=== PATIENT | male | born 1975 | race Caucasian/White ===

== ENCOUNTER 2017-02-13 13:09 | Emergency (ER) | payer BC, OTHER ==
[~2017-02-13] VITALS: Ht 172.7 cm; Wt 101.3 kg
[2017-02-13 13:16] VITALS: BP 131/66
--- NOTE | 2017-02-13 13:27 | NUR ---
continues to wait for available room for MD davis. no emesis states abdominal pain continues, more so with certain movements.
--- NOTE | 2017-02-13 14:32 | NUR ---
PATIENT PRESENTS TO ED WITH SINUS PAIN EAR PAIN THROAT PAIN . PT STATES FEELS SICK] . DENIES N/V/D; SKIN IS PINK/WARM/DRY; AAOX4 WITH EVEN AND STEADY GAIT; LUNGS CLEAR BL; HR EVEN AND REGULAR; ; PATIENT STATES PAIN OF 5/10 AT THIS TIME; VSS; PATIENT POSITIONED FOR COMFORT; HOB ELEVATED; BEDRAILS UP X2; BED DOWN. ER MD MADE AWARE OF PT STATUS.
--- NOTE | 2017-02-13 16:04 | NUR ---
PT IS A NO ANSWER OUT IN THE ER LOBBY FOR DC PAPERS----
--- NOTE | 2017-02-13 16:17 | NUR ---
I CALLED PT'S HOME, HIS MOTHER ANSWERED---INFORMED WE HAVE PT'S DISCHARGE PAPERS AND RX---TO PLEASE RETURN FOR RX
--- NOTE | 2017-02-13 17:35 | NUR ---
PT RETURNED FROM HOME---PICKED UP RX
--- NOTE | 2017-02-13 17:35 | NUR ---
Patient discharged with v/s stable. Written and verbal after care instructions given and explained. Patient alert, oriented and verbalized understanding of instructions. Ambulatory with steady gait. All questions addressed prior to discharge. ID band removed. Patient advised to follow up with PMD. Rx of AMOXICILLIN/MOTRIN/SUDAFED/PREDNISONE given. Patient educated on indication of medication including possible reaction and side effects. Opportunity to ask questions provided and answered.
[2017-02-13 17:37] VITALS: BP 131/79
== END 2017-02-13 17:35 | disposition home or self-care (01) ==
LOC: MED 13:09
DX: H66.90 Otitis media, unspecified, unspecified ear (principal); J03.90 Acute tonsillitis, unspecified; Z90.89 Acquired absence of other organs
CPT/HCPCS: 99283

== ENCOUNTER 2019-03-12 20:09 | Emergency (ER) | payer BC, OTHER ==
[~2019-03-12] VITALS: Ht 172.7 cm; Wt 99.8 kg
[2019-03-12 20:24] VITALS: BP 101/45
--- NOTE | 2019-03-12 20:29 | NUR ---
PT AMBULATED TO LOBBY.
--- NOTE | 2019-03-12 20:42 | NUR ---
PT AMBULATED TO BED 05.
--- NOTE | 2019-03-12 21:09 | NUR ---
44 YO M BIB SELF AND PRESENTS TO ED C/O MOUTH PAIN S/P DENTURE IMPLANT FALLING OUT X 2 HOURS AGO. PT STATES HE CANNOT EAT AND DOES NOT HAVE A DENTIST. -- PT AWAKE, ALERT, CALM COOPERATIVE. ANSWERING QUESTIONS APPROPRIATELY. APPEARS TO BE IN PAIN. BEHAVIOR AGE APPROPRIATE. -- SKIN PINK, WARM, DRY. BREATHING EVEN, UNLABORED. -- SEVERAL TEETH NOTED MISSING TO RIGHT UPPER JAW. NO BLEEDING NOTED. PMH-- DENIES RX-- DENIES
[2019-03-12] MEDS ORDERED: KETOROLAC 60 MG/2 ML VIAL IM ONE (21:35)
--- NOTE | 2019-03-12 21:39 | NUR ---
DR. CARRANZA AT BEDSIDE.
[2019-03-12 22:04] VITALS: BP 108/60
== END 2019-03-12 22:04 | disposition home or self-care (01) ==
LOC: MED 20:09
DX: K08.89 Other specified disorders of teeth and supporting structures (principal); F17.210 Nicotine dependence, cigarettes, uncomplicated; Z98.890 Other specified postprocedural states
CPT/HCPCS: 96372; 99283; J1885